=== PATIENT | female | born 1950 | race Caucasian/White ===

== ENCOUNTER 2018-01-19 10:41 | Day surgery (SDC) | payer BC ==
[~2018-01-19] VITALS: Ht 162.6 cm; Wt 117.6 kg
[~2018-01-19 10:41] MED LIST: AMLO5; AZIT250 PO; Estradiol1 MG PO; FURO40; HYDGUAL120 PO; IRBE150; K-Tab10 MEQ PO; LEVSOD125 PO; LISHYD2012 PO; Mobic15 MG PO; POTCHL10ER; TRIHYD5075; Vesicare10 MG
== END 2018-01-19 14:08 | disposition home or self-care (01) ==
LOC: ORSCSDS 10:41
PROVIDERS: Podiatrist Foot & Ankle Surgery
PROC: 01BG0ZZ Excision of Tibial Nerve, Open Approach (ICD-10-PCS; principal; 2018-01-19 12:30)
DX: G57.61 Lesion of plantar nerve, right lower limb (principal); I10 Essential (primary) hypertension; E07.9 Disorder of thyroid, unspecified; Z79.899 Other long term (current) drug therapy
CPT/HCPCS: J0171; J0690; J2250; J2765; J3010

== ENCOUNTER 2019-08-07 11:52 | Emergency (ER) | payer OTHER ==
[~2019-08-07] VITALS: Ht 160 cm; Wt 104.3 kg
[2019-08-07] MEDS ORDERED: HYDR1TAB94 PO (12:56)
== END 2019-08-07 13:23 | disposition home or self-care (01) ==
LOC: ER 11:52
DX: S42.201A Unspecified fracture of upper end of right humerus, initial encounter for closed fracture (principal); S42.211A Unspecified displaced fracture of surgical neck of right humerus, initial encounter for closed fracture; I10 Essential (primary) hypertension; Z79.899 Other long term (current) drug therapy; W01.0XXA Fall on same level from slipping, tripping and stumbling without subsequent striking against object, initial encounter
CPT/HCPCS: 73030; 99283-25

== ENCOUNTER → 2023-01-14 | Outpatient (CLI) | payer OTHER ==
[~2023-01-14] MED LIST changes: +HYDR1TAB94 PO
[2023-01-14 18:08] LABS: Creatinine, Urine Random 66.5 mg/dL (27.00-270.00)
[2023-01-14 18:11] LABS: Microalb/Creat Ratio UR, Rand 97.293 mg/g (0.000-30.000); Microalbumin, Random Urine 64.7 mg/L (0.000-20.000)
== END | disposition home or self-care (01) ==
LOC: LAB 16:03 → LAB SHORT 16:03
PROVIDERS: Physician Assistant
DX: E11.69 Type 2 diabetes mellitus with other specified complication (principal)
CPT/HCPCS: 82043; 82570